=== PATIENT | female | born 1980 | race Caucasian/White ===

== ENCOUNTER 2017-05-30 15:14 | Day surgery (SDC) | payer OTHER ==
[~2017-05-30] VITALS: Ht 170.2 cm; Wt 95.3 kg
[2017-05-30] VITALS (14 sets, daily range): BP systolic 101–112; BP diastolic 59–82; PULSE 46–73; RESP 11–29; Ht 170.2 cm; Wt 95.3 kg
[~2017-05-30 15:14] MED LIST: CEFAZOLIN 1 GM/50 ML (PMX) 50 ML IVPB ONE; DEXAMETHASONE 4 MG/ML 1 ML INJ IV ONE; DULO60CA6 PO; HYDR-906 PO; LYRI200 PO; PYRI100T59 PO; SERT50TA PO; TOPI25CA PO
[2017-05-30] MEDS ORDERED: SERT50TA PO (15:34)
[2017-05-30] MEDS ORDERED: DULO60CA6 PO (15:35)
[2017-05-30] MEDS ORDERED: TOPI-25 PO (15:36)
[2017-05-30] MEDS ORDERED: SUMA100T9 PO (15:36)
[2017-05-30] MEDS ORDERED: GABA300C16 PO (15:36)
[2017-05-30] MEDS ORDERED: ROCURONIUM 50 MG INJ ONE (17:48)
[2017-05-30] MEDS ORDERED: MIDAZOLAM 1 MG/ML 2 ML INJ ONE (17:48)
[2017-05-30] MEDS ORDERED: CEFAZOLIN 1 GM INJ ONE (17:48)
[2017-05-30] MEDS ORDERED: FENTAnyl 50 MCG/ML VIAL ONE (17:48)
[2017-05-30] MEDS ORDERED: PROPOFOL 20 ML ONE (17:48)
[2017-05-30] MEDS ORDERED: ONDANSETRON 4 MG INJ IV PRN (18:30)
[2017-05-30] MEDS ORDERED: DIPHENHYDRAMINE 50 MG INJ IV PRN (18:30)
[2017-05-30] MEDS ORDERED: METOCLOPRAMIDE 10 MG INJ IV PRN (18:30)
[2017-05-30] MEDS ORDERED: FENTAnyl 50 MCG/ML VIAL IV PRN ×2 (18:30)
[2017-05-30] MEDS ORDERED: HYDROmorphONE (0.2 MG/ML) 10ML SYG IV PRN ×2 (18:30)
[2017-05-30] MEDS ORDERED: MEPERIDINE 25 MG INJ IV PRN (18:30)
[2017-05-30] MEDS ORDERED: LIDOCAINE 2%/EPI 30 ML INJ ONE (18:37)
[2017-05-30] MEDS ORDERED: COCAINE 4% 4 ML TOP ONE (18:38)
[2017-05-30] MEDS ORDERED: OXYMETAZOLINE 0.05% 15 ML NAS SPRAY NASAL ONE (18:38)
[2017-05-30] MEDS ORDERED: BACITRACIN/POLYMYXIN 28.35 GM OINT TOP ONE (18:38)
--- NOTE | 2017-05-30 18:55 | HPN ---
Date/Time of Note Date/Time of Note DATE: 05/30/17 TIME: 18:55 Interval H&P Admission Note Pt. seen H&P reviewed: No system changes BRIGIDO LEVI MD May 30, 2017 18:55
[2017-05-30] MEDS ORDERED: BUPIVACAINE 0.5% (SDV) 30 ML INJ ONE (19:11)
[2017-05-30] MEDS ORDERED: ONDANSETRON 4 MG INJ ONE (19:21)
[2017-05-30] MEDS ORDERED: METOCLOPRAMIDE 10 MG INJ ONE (19:21)
[2017-05-30] MEDS ORDERED: DEXAMETHASONE 4 MG/ML 1 ML INJ ONE (19:22)
[2017-05-30] MEDS ORDERED: SUGAMMADEX SODIUM 200 MG/2 ML VIAL IV ONE (19:22)
[2017-05-30] MEDS ORDERED: KETOROLAC 30 MG INJ ONE (19:22)
[2017-05-30] MEDS ORDERED: ACETAMINOPHEN 1000MG/100ML IV 100 ML ONE (19:23)
[2017-05-30] MEDS ORDERED: BUPIVACAINE 0.5% 30 ML VIAL INJ ONE (19:33)
--- NOTE | 2017-05-30 19:43 | OPR ---
Date/Time of Note Date/Time of Note DATE: 05/30/17 TIME: 19:41 Operative Report Procedure Date: May 30, 2017 Preoperative Diagnosis Deviated nasal septum with inferior turbinate hypertrophy Postoperative Diagnosis Same Operation Performed Septoplasty with submucous resection of turbinates. Surgeon: BRIGIDO LEVI MD Anesthesia Type: general Estimated Blood Loss: minimal Transfusion Required: no Specimen: none Grafts/Implants: none Complications: no Pt Condition Post Procedure: stable Disposition: PACU Indications Nasal congestion unresponsive to medical management. Operative\Procedure Findings DNS left with large septal spur. ITH worse right. Procedure Description Description of procedure: The patient was identified in the holding area. We had a discussion to confirm understanding of all indications risks benefits alternatives and postoperative care associated with the operation. The patient signed informed consent was taken to the operating room. The patient was laid supine on the operating room table and general anesthesia was achieved without difficulty. The face was draped in sterile fashion and the nose was packed with 4% cocaine pledgets. The nasal septum was infiltrated with 5 cc of 1% lidocaine with epinephrine in the submucoperiosteal plane bilaterally. A left sided Aldo incision was made and submucoperichondreal flaps were raised. The bony cartilaginous junction of the septum was identified and entered. A deviated segments of bone and cartilage were isolated. A double- action scissor was used to transect the bony deviated segment of the skull base after which a Ambrose forcep was used to resect deviated segment of bone and cartilage. Care was taken to avoid excess cartilaginous resection. The flaps were returned to normal position and anterior rhinoscopy reveals midline septum. At this point the right inferior turbinate was medialized with a [place] elevator. The Coblation wand on a setting of 6 was used to enter the turbinate in the inferior medial submucosal compartment. 10 seconds of Coblation were performed at the 3rd 2nd and 1st gordon after which the turbinate was crushed laterally into the lateral nasal wall with a Ellis elevator. The contralateral turbinate was addressed in similar fashion to complete the bilateral submucous resection and lateral fracturing of the inferior turbinates. Septal flaps were secured with a 40 fast-absorbing gut whip stitch. The patient was awakened, extubated and taken to the PACU in stable condition. Complications: None. BRIGIDO LEVI MD May 30, 2017 19:43
[2017-05-30] MEDS: FENTAnyl 50 MCG/ML VIAL IV PRN ×2 (19:59→20:26)
[2017-05-30] MEDS ORDERED: IBUPROFEN 600 MG TAB PO PRN (20:00)
[2017-05-30] MEDS: HYDROmorphONE (0.2 MG/ML) 10ML SYG IV PRN ×2 (20:01→20:10)
== END 2017-05-30 21:01 | disposition home or self-care (01) ==
LOC: SDS 15:14
PROVIDERS: ATTEND Otolaryngology
DX: J34.2 Deviated nasal septum (principal); J34.3 Hypertrophy of nasal turbinates
CPT/HCPCS: 30140; 30520; J0131; J0690; J1100; J1170; J2250; J2405; J2765; J3010; Z7512; Z7610; J1885

== ENCOUNTER → 2017-09-13 | Emergency (ER) | payer SELFPAY ==
[~2017-09-13] VITALS: Wt 100.7 kg
[~2017-09-13] MED LIST changes: -CEFAZOLIN 1 GM/50 ML (PMX) 50 ML IVPB ONE; -DEXAMETHASONE 4 MG/ML 1 ML INJ IV ONE; +GABA300C16 PO; -HYDR-906 PO; -LYRI200 PO; -PYRI100T59 PO; +SUMA100T9 PO; +TOPI-25 PO; -TOPI25CA PO
== END | disposition left against medical advice (07) ==
LOC: FTE 09:18
DX: Z53.21 Procedure and treatment not carried out due to patient leaving prior to being seen by health care provider (principal)